=== PATIENT | female | born 1985 | race Two or more races ===

== ENCOUNTER 2019-01-17 10:25 | Inpatient (IN) | payer MEDICAID ==
[~2019-01-17] VITALS: Ht 156.2 cm; Wt 46.3 kg
[2019-01-17] MEDS ORDERED: ZOLPIDEM TARTRATE 10 MG TABLET PO PRN (14:15)
[2019-01-17] MEDS ORDERED: HALOPERIDOL 5 MG TABLET PO PRN (14:15)
[2019-01-17] MEDS ORDERED: LORazepam 2 MG TABLET PO PRN (14:15)
[2019-01-17 14:20] VITALS: BP 126/70
[2019-01-17] MEDS ORDERED: INFLUENZA VIRUS VACCINE QVS 2019-20 (3YR+)/PF 60 MCG/0.5 ML SYRINGE IM ONE (14:30)
[2019-01-17 14:54] VITALS: BP 117/69
[2019-01-17 16:16] VITALS: BP 108/70
[2019-01-17] MEDS: BACITRACIN 28.4 GM OINTMENT TP SCH (21:18)
[2019-01-18 05:55] VITALS: BP 112/75
[2019-01-18] MEDS: BACITRACIN 28.4 GM OINTMENT TP SCH ×2 (08:20→16:19)
[2019-01-18 08:51] LABS: BASOPHILS % (AUTO) 0.5 % (0.0-2.0); EOSINOPHILS % (AUTO) 1.6 % (1.0-6.0); HEMATOCRIT 42.3 % (36-46); HEMOGLOBIN 14.4 g/dL (12.0-16.0); LYMPHOCYTES # (AUTO) 1.6 K/uL (1.0-4.8); LYMPHOCYTES % (AUTO) 19.2 % (22.0-44.0); MEAN CORPUSCULAR HEMOGLOBIN 32.1 pg (26.0-34.0); MEAN CORPUSCULAR HGB CONC 34.1 G/dL (31.0-37.0); MEAN CORPUSCULAR VOLUME 94 fL (80-100); MONOCYTES # (AUTO) 0.7 K/uL (0.1-1.0); MONOCYTES % (AUTO) 8.5 % (2.0-9.0); NEUTROPHILS # (AUTO) 5.9 K/uL (1.8-7.7); NEUTROPHILS % (AUTO) 70.2 % (40.0-70.0); PLATELET COUNT (AUTO) 201 K/uL (150-450); RED CELL DISTRIBUTION WIDTH 12.6 % (11.5-14.5)
[2019-01-18 08:52] VITALS: BP 112/61
[2019-01-18 09:09] LABS: HEMOGLOBIN A1C 5.5 % (4.5-6.2)
[2019-01-18 09:18] LABS: ALANINE AMINOTRANSFERASE 8 U/L (12-78); ALBUMIN 3.6 g/dL (3.4-5.0); ALKALINE PHOSPHATASE 47 U/L (46-116); ANION GAP 7 mmol/L (8-16); ASPARTATE AMINOTRANSFERASE 13 U/L (15-37); CALCIUM, TOTAL 8.4 mg/dL (8.8-10.5); CARBON DIOXIDE 29 mmol/L (22-29); CHLORIDE 104 mmol/L (98-107); CHOL/HDL RATIO 2.4 (3.9-5.7); CHOLESTEROL 134 mg/dL (131-200); CREATININE 0.67 mg/dL (0.60-1.30); FREE T4 (FREE THYROXINE) 0.94 ng/dL (0.76-1.46); GLOMERULAR FILTR. RATE CALC > 60 mL/min (>60); GLUCOSE,RANDOM 72 mg/dL (70-110); HCG,QUANTITATIVE < 1 mIU/mL (0-6); HDL CHOLESTEROL 57 mg/dL (40-60); LDL CHOL (CALC.) 64 mg/dL (0-130); POTASSIUM 3.7 mmol/L (3.5-5.1); SODIUM SERUM 140 mmol/L (136-145); THYROID STIMULATING HORMONE 0.51 uIU/mL (0.36-3.74); TRIGLYCERIDES 67 mg/dL (15-150); UREA NITROGEN, BLOOD 14 mg/dL (7-18)
[2019-01-18] MEDS: ESCITALOPRAM OXALATE 10 MG TABLET PO SCH (10:38)
[2019-01-18] MEDS ORDERED: NICOTINE 14 MG/24 HOUR PATCH TD PRN (11:30)
[2019-01-18] MEDS ORDERED: GuaiFENesin/D-METHORPHAN [SUGAR-FREE] 200-20MG/10 ML SYRUP UDCUP PO PRN (11:30)
[2019-01-18] MEDS ORDERED: ALBUTEROL SULFATE HFA 90 MCG/PUFF 8 GM INHALER IH PRN (11:30)
[2019-01-18] MEDS ORDERED: LOPERAMIDE HCL 2 MG CAPSULE PO PRN (11:30)
[2019-01-18] MEDS ORDERED: DOCUSATE SODIUM 100 MG CAPSULE PO PRN (11:30)
[2019-01-18] MEDS ORDERED: CloNIDine HCL 0.1 MG TABLET PO PRN (11:30)
[2019-01-18] MEDS ORDERED: MAG HYDROX/AL HYDROX/SIMETH ES 30 ML SUSPENSION UDCUP PO PRN (11:30)
[2019-01-18] MEDS ORDERED: ONDANSETRON HCL 4 MG TABLET PO PRN (11:30)
[2019-01-18] MEDS ORDERED: PETROLATUM,WHITE 28 GM JELLY TP PRN (11:30)
[2019-01-18] MEDS ORDERED: MAGNESIUM HYDROXIDE SUSPENSION 30 ML UDCUP PO PRN (11:30)
[2019-01-18] MEDS ORDERED: ACETAMINOPHEN 325 MG TABLET PO PRN (11:30)
[2019-01-18] MEDS ORDERED: IBUPROFEN 400 MG TABLET PO PRN (11:30)
[2019-01-18 16:09] VITALS: BP 135/69
[2019-01-19 06:42] VITALS: BP 100/70
[2019-01-19 08:08] VITALS: BP 102/71
[2019-01-19] MEDS: ESCITALOPRAM OXALATE 10 MG TABLET PO SCH (08:58)
[2019-01-19] MEDS: BACITRACIN 28.4 GM OINTMENT TP SCH ×2 (08:58→16:18)
[2019-01-19 17:26] VITALS: BP 108/76
[2019-01-20 01:36] VITALS: BP 106/64
[2019-01-20 08:10] VITALS: BP 94/64
[2019-01-20] MEDS: ESCITALOPRAM OXALATE 10 MG TABLET PO SCH (08:30)
[2019-01-20] MEDS: BACITRACIN 28.4 GM OINTMENT TP SCH ×2 (08:30→17:00)
[2019-01-20 16:09] VITALS: BP 107/62
[2019-01-21 00:09] VITALS: BP 108/60
[2019-01-21 08:33] VITALS: BP 101/63
[2019-01-21] MEDS: ESCITALOPRAM OXALATE 10 MG TABLET PO SCH (08:50)
[2019-01-21] MEDS: BACITRACIN 28.4 GM OINTMENT TP SCH (08:51)
[2019-01-21] MEDS ORDERED: ESCI10TA PO (11:06)
== END 2019-01-21 14:14 | disposition home or self-care (01) | DRG 751 ==
LOC: B2S 14:16
PROVIDERS: ADMIT Psychiatry & Neurology Psychiatry; ATTEND Psychiatry & Neurology Psychiatry
DX: F33.3 Major depressive disorder, recurrent, severe with psychotic symptoms (principal); E83.51 Hypocalcemia; D72.829 Elevated white blood cell count, unspecified; R45.87 Impulsiveness; F10.10 Alcohol abuse, uncomplicated; F41.9 Anxiety disorder, unspecified
CPT/HCPCS: 83036; 84439; 84443; 90686